=== PATIENT | female | born 1995 | race Caucasian/White ===

== ENCOUNTER 2025-03-03 01:03 | Emergency (ER) | payer MEDICAID ==
[~2025-03-03] VITALS: Ht 154.9 cm; Wt 100.0 kg
[2025-03-03 01:12] VITALS: O2SAT 99
[2025-03-03] MEDS ORDERED: ACETAMINOPHEN 325MG TABLET PO ONE (01:30)
[2025-03-03 02:38] LABS: BASOPHILS % 0.6 % (0.0-2.0); EOSINOPHILS % 1.5 % (0.0-5.0); HEMATOCRIT. 40.3 % (36.0-48.0); HEMOGLOBIN. 13.3 g/dL (12.0-16.0); LYMPHOCYTES % 25.1 % (20.0-50.0); MEAN CORPUSCULAR HEMOGLOBIN 28.3 pg (28.0-32.0); MEAN CORPUSCULAR HGB CONC 32.9 g/dL (31.0-37.0); MEAN CORPUSCULAR VOLUME 86.1 fL (81.0-99.0); MEAN PLATELET VOLUME 9.6 fl (7.4-10.4); MONOCYTES % 5.6 % (2.0-8.0); NEUTROPHILS % 67.2 % (40.0-76.0); PLATELET 267 x1000/uL (130-400); RED BLOOD CELL COUNT 4.68 mill/uL (4.2-5.4); RED CELL DISTRIBUTION WIDTH 14.3 % (11.6-14.6); WHITE BLOOD COUNT 11.3 x1000/uL (4.5-11.0)
[2025-03-03 02:39] LABS: CLARITY URINE CLEAR (CLEAR); COLOR URINE YELLOW (YELLOW); GLUCOSE URINE NEGATIVE (NEGATIVE); KETONES URINE NEGATIVE (NEGATIVE); LEUKOCYTE ESTERASE URINE NEGATIVE (NEGATIVE); NITRITE URINE NEGATIVE (NEGATIVE); OCCULT BLOOD URINE NEGATIVE (NEGATIVE); PH URINE 5.5 (4.5-8.0); PROTEIN URINE TRACE (NEGATIVE)
[2025-03-03 03:06] LABS: CHLORIDE 111 mEq/L (98-107); POTASSIUM 3.9 mEq/L (3.5-5.1); SODIUM 140 mEq/L (136-145)
[2025-03-03 03:07] LABS: CARBON DIOXIDE 25 mEq/L (21-32)
[2025-03-03 03:12] LABS: CREATININE 0.8 mg/dL (0.6-1.0); GLUCOSE 108 mg/dL (70-105); UREA NITROGEN BLOOD 12 mg/dL (9-23)
[2025-03-03 03:13] LABS: B-HCG QUANTITATIVE 7 mIU/mL (<6)
[2025-03-03 03:14] LABS: ALANINE AMINOTRANSFERASE 31 IU/L (10-49); ALBUMIN 4.1 g/dL (3.2-4.8); ASPARTATE AMINOTRANSFERASE 21 IU/L (<34); BILIRUBIN DIRECT 0.1 mg/dL (<=3.0); BILIRUBIN TOTAL 0.4 mg/dL (0.1-1.0)
[2025-03-03 03:30] LABS: SQUAMOUS EPITHELIAL CELL URINE 2+ /lpf (RARE/1+)
[2025-03-03 03:31] LABS: RBC URINE 0-2 /hpf (0-2); WBC URINE 0-2 /hpf (0-2)
[2025-03-03 03:33] LABS: BACTERIA URINE NONE SEEN
[2025-03-03] MEDS ORDERED: ACET-2708 MT (03:37)
[2025-03-03] MEDS: ACETAMINOPHEN 325MG TABLET PO NR (03:45)
[2025-03-03 03:55] VITALS: BP 121/70; PULSE 77; RESP 18; TEMP 36.7; O2SAT 100
== END 2025-03-03 04:01 | disposition home or self-care (01) ==
LOC: ER 01:03
DX: O20.0 Threatened abortion (principal); O99.511 Diseases of the respiratory system complicating pregnancy, first trimester; J45.909 Unspecified asthma, uncomplicated; Z3A.01 Less than 8 weeks gestation of pregnancy; Z98.890 Other specified postprocedural states; Z79.899 Other long term (current) drug therapy
CPT/HCPCS: 36415; 76801; 80048; 80076; 81003; 84702; 85025; 86850; 86900; 99284; 99285